=== PATIENT | male | born 1960 | race Two or more races ===

== ENCOUNTER 2016-11-05 17:47 | Inpatient (IN) | payer MEDICAID, MEDICARE ==
[~2016-11-05] VITALS: Ht 195.6 cm; Wt 108.4 kg
[2016-11-05 18:21] VITALS: BP 144/93
[2016-11-05] MEDS ORDERED: MORP15TA PO (18:21)
[2016-11-05] MEDS ORDERED: TRAZ-144 PO (18:21)
[2016-11-05] MEDS ORDERED: HYDR-3326 PO (18:21)
[2016-11-05] MEDS ORDERED: PALI9TAB4 PO (18:21)
[2016-11-05] MEDS ORDERED: LIDO30AD10 TP (18:21)
[2016-11-05] MEDS ORDERED: PANT40TA4 PO (18:21)
[2016-11-05] MEDS ORDERED: ONDA4TAB11 PO (18:21)
[2016-11-05] MEDS ORDERED: LURA80TA PO (18:21)
[2016-11-05] MEDS ORDERED: PREG150C PO (18:21)
[2016-11-05] MEDS ORDERED: MAG HYDROX/AL HYDROX/SIMETH 30 ML UDC PO PRN (18:30)
[2016-11-05] MEDS ORDERED: ZOLPIDEM TARTRATE 5 MG TABLET PO PRN (18:30)
[2016-11-05] MEDS ORDERED: LORAZEPAM 0.5 MG TABLET PO PRN (18:30)
[2016-11-05] MEDS ORDERED: MAGNESIUM HYDROXIDE 30 ML UDC PO PRN (18:30)
[2016-11-05] MEDS ORDERED: HYDROCODONE/APAP 5/325MG 1 EACH TABLET PO PRN (19:30)
[2016-11-05] MEDS ORDERED: ONDANSETRON 4 MG TAB.RAPDIS PO PRN (19:30)
[2016-11-05 20:00] VITALS: BP 125/74
[2016-11-05] MEDS: MORPHINE SULFATE IR 15 MG TABLET PO SCH (21:01)
[2016-11-05] MEDS ORDERED: TRAZODONE 50 MG TABLET PO SCH (22:00)
[2016-11-05] MEDS ORDERED: HYDROCODONE/APAP 5/325MG 1 EACH TABLET ONE (22:29)
[2016-11-05] MEDS ORDERED: MAG HYDROX/AL HYDROX/SIMETH 30 ML UDC ONE (22:29)
[2016-11-06] MEDS: MORPHINE SULFATE IR 15 MG TABLET PO SCH (05:00)
[2016-11-06 07:48] LABS: CALCIUM, SERUM 8.6 mg/dL (8.5-10.1); CREATININE 0.9 mg/dL (0.6-1.3)
[2016-11-06 08:06] LABS: ALBUMIN 3.3 g/dL (3.4-5.0); BILIRUBIN,TOTAL 0.5 mg/dL (0.2-1.0)
[2016-11-06] MEDS: PANTOPRAZOLE 40 MG TABLET.DR PO SCH (08:44)
[2016-11-06 08:58] VITALS: BP 103/63
[2016-11-06] MEDS: LIDOCAINE 5% (PATCH) 1 EA PATCH TP SCH (11:11)
[2016-11-06] MEDS: OLANZAPINE 5 MG/TAB.RAPDIS PO SCH ×2 (11:20→17:23)
[2016-11-06 17:23] VITALS: BP 107/60
[2016-11-06 19:56] VITALS: BP 111/70
[2016-11-06] MEDS: DIVALPROEX SODIUM 250 MG TABLET.DR PO SCH (20:22)
[2016-11-06] MEDS: ACETAMINOPHEN 325 MG TABLET PO PRN (20:24)
[2016-11-06] MEDS: TRAZODONE 50 MG TABLET PO PRN (21:37)
[2016-11-07 08:00] VITALS: BP 112/64
[2016-11-07] MEDS: OLANZAPINE 5 MG/TAB.RAPDIS PO SCH ×2 (08:28→18:17)
[2016-11-07] MEDS: PANTOPRAZOLE 40 MG TABLET.DR PO SCH (08:28)
[2016-11-07] MEDS: DULOXETINE HCL 30 MG CAPSULE.DR PO SCH (08:28)
[2016-11-07] MEDS: DIVALPROEX SODIUM 250 MG TABLET.DR PO SCH ×2 (08:28→21:39)
[2016-11-07] MEDS: LIDOCAINE 5% (PATCH) 1 EA PATCH TP SCH (08:53)
[2016-11-07] MEDS: ACETAMINOPHEN 325 MG TABLET PO PRN (09:11)
[2016-11-07] MEDS: hydrOXYzine PAMOATE 25 MG CAPSULE PO PRN (13:48)
[2016-11-07] MEDS ORDERED: OLANZAPINE 10 MG VIAL IM STA (15:36)
[2016-11-07 15:58] VITALS: BP 150/94
[2016-11-07 19:48] VITALS: BP 118/72
[2016-11-07] MEDS ORDERED: Z GUARD REMEDY 2 OZ OINT TP PRN (20:00)
[2016-11-07] MEDS: TRAZODONE 50 MG TABLET PO PRN (22:11)
[2016-11-08] MEDS: hydrOXYzine PAMOATE 25 MG CAPSULE PO PRN (00:32)
[2016-11-08] MEDS: OLANZAPINE 5 MG/TAB.RAPDIS PO SCH ×2 (08:13→16:46)
[2016-11-08] MEDS: DULOXETINE HCL 30 MG CAPSULE.DR PO SCH (08:13)
[2016-11-08] MEDS: PANTOPRAZOLE 40 MG TABLET.DR PO SCH (08:13)
[2016-11-08] MEDS: DIVALPROEX SODIUM 250 MG TABLET.DR PO SCH ×2 (08:13→21:26)
[2016-11-08] MEDS: LIDOCAINE 5% (PATCH) 1 EA PATCH TP SCH (08:14)
[2016-11-08 08:37] VITALS: BP 122/66
[2016-11-08] MEDS: ACETAMINOPHEN 325 MG TABLET PO PRN (11:40)
[2016-11-08 16:43] VITALS: BP 105/62
[2016-11-08 20:38] VITALS: BP 124/74
[2016-11-08] MEDS: TRAZODONE 50 MG TABLET PO PRN (23:55)
[2016-11-09] MEDS: hydrOXYzine PAMOATE 25 MG CAPSULE PO PRN (00:10)
[2016-11-09] MEDS: PANTOPRAZOLE 40 MG TABLET.DR PO SCH (07:50)
[2016-11-09] MEDS: DIVALPROEX SODIUM 250 MG TABLET.DR PO SCH ×2 (08:04→21:29)
[2016-11-09] MEDS: DULOXETINE HCL 30 MG CAPSULE.DR PO SCH (08:04)
[2016-11-09] MEDS: OLANZAPINE 5 MG/TAB.RAPDIS PO SCH ×2 (08:04→16:52)
[2016-11-09] MEDS: LIDOCAINE 5% (PATCH) 1 EA PATCH TP SCH (08:16)
[2016-11-09 08:20] VITALS: BP 142/74
[2016-11-09 16:22] VITALS: BP 140/66
[2016-11-09] MEDS: HYDROCORTISONE 2.5% CREAM 28.4 GM TUBE TP SCH (16:52)
[2016-11-09 19:55] VITALS: BP 112/73
[2016-11-09] MEDS: TRAZODONE 50 MG TABLET PO PRN (21:29)
[2016-11-10 08:00] VITALS: BP 105/60
[2016-11-10 08:05] LABS: BASOPHILS % (AUTO) 0.4 % (0.0-2.0); DIFF TOTAL % 100 %; EOSINOPHILS # (AUTO) 0.2 /CMM (0.0-0.7); EOSINOPHILS % (AUTO) 3.9 % (0.0-6.0); HEMATOCRIT 47 % (39-51); HEMOGLOBIN 15.7 g/dL (13.5-17.5); LYMPHOCYTES # (AUTO) 2.5 /CMM (0.8-4.8); LYMPHOCYTES % (AUTO) 44.8 % (20.0-44.0); MEAN CORPUSCULAR HEMOGLOBIN 30 PG (26.0-33.0); MEAN CORPUSCULAR HGB CONC 34 g/dl (31.0-36.0); MEAN CORPUSCULAR VOLUME 89 fL (80-96); MONOCYTES # (AUTO) 0.4 /CMM (0.1-1.30); MONOCYTES % (AUTO) 7.2 % (2.0-12.0); NEUTROPHILS # (AUTO) 2.4 /CMM (1.8-8.9); NEUTROPHILS % (AUTO) 43.7 % (43.0-81.0); PLATELET COUNT (AUTO) 199 /CMM (150-450); RED BLOOD CELL COUNT(AUTO) 5.24 MIL/uL (4.5-6.0); WHITE BLOOD COUNT (AUTO) 5.5 K/uL (4.3-11.0)
[2016-11-10 08:18] LABS: CALCIUM, SERUM 8.8 mg/dL (8.5-10.1); CREATININE 0.9 mg/dL (0.6-1.3)
[2016-11-10] MEDS: OLANZAPINE 5 MG/TAB.RAPDIS PO SCH ×2 (08:51→16:27)
[2016-11-10] MEDS: DIVALPROEX SODIUM 250 MG TABLET.DR PO SCH ×2 (08:51→20:28)
[2016-11-10] MEDS: LIDOCAINE 5% (PATCH) 1 EA PATCH TP SCH (08:52)
[2016-11-10] MEDS: PANTOPRAZOLE 40 MG TABLET.DR PO SCH (08:52)
[2016-11-10] MEDS: DULOXETINE HCL 30 MG CAPSULE.DR PO SCH (08:52)
[2016-11-10] MEDS: HYDROCORTISONE 2.5% CREAM 28.4 GM TUBE TP SCH ×2 (08:57→16:27)
[2016-11-10] MEDS: ACETAMINOPHEN 325 MG TABLET PO PRN (15:16)
[2016-11-10 16:00] VITALS: BP_SYST 112; BP_SYST 136; BP_DIAS 61; BP_DIAS 76
[2016-11-10 20:00] VITALS: BP 140/77
[2016-11-10] MEDS: TRAZODONE 50 MG TABLET PO PRN (21:50)
[2016-11-11] MEDS: PANTOPRAZOLE 40 MG TABLET.DR PO SCH (07:30)
[2016-11-11 08:00] VITALS: BP 137/85
[2016-11-11] MEDS: DULOXETINE HCL 30 MG CAPSULE.DR PO SCH (09:43)
[2016-11-11] MEDS: DIVALPROEX SODIUM 250 MG TABLET.DR PO SCH ×3 (09:43→17:32)
[2016-11-11] MEDS: OLANZAPINE 5 MG/TAB.RAPDIS PO SCH ×2 (09:43→17:34)
[2016-11-11] MEDS: HYDROCORTISONE 2.5% CREAM 28.4 GM TUBE TP SCH ×2 (09:44→17:33)
[2016-11-11] MEDS: LIDOCAINE 5% (PATCH) 1 EA PATCH TP SCH ×3 (09:44→15:57)
[2016-11-11 16:00] VITALS: BP 130/80
[2016-11-11 18:12] VITALS: BP 130/80
[2016-11-11 20:00] VITALS: BP 127/70
[2016-11-11] MEDS: ACETAMINOPHEN 325 MG TABLET PO PRN (23:05)
[2016-11-11] MEDS: TRAZODONE 50 MG TABLET PO PRN (23:05)
[2016-11-12 08:00] VITALS: BP 140/70
[2016-11-12] MEDS: DULOXETINE HCL 30 MG CAPSULE.DR PO SCH (08:38)
[2016-11-12] MEDS: PANTOPRAZOLE 40 MG TABLET.DR PO SCH (08:38)
[2016-11-12] MEDS: DIVALPROEX SODIUM 250 MG TABLET.DR PO SCH ×3 (08:38→17:10)
[2016-11-12] MEDS: OLANZAPINE 5 MG/TAB.RAPDIS PO SCH ×2 (08:38→17:10)
[2016-11-12] MEDS: HYDROCORTISONE 2.5% CREAM 28.4 GM TUBE TP SCH ×2 (09:00→17:00)
[2016-11-12 16:01] VITALS: BP 128/70
[2016-11-12] MEDS: hydrOXYzine PAMOATE 25 MG CAPSULE PO PRN (18:40)
[2016-11-12 19:46] VITALS: BP 119/80
[2016-11-12] MEDS: TRAZODONE 50 MG TABLET PO PRN (21:15)
[2016-11-13 08:00] VITALS: BP 119/63
[2016-11-13] MEDS: OLANZAPINE 5 MG/TAB.RAPDIS PO SCH ×2 (08:40→16:04)
[2016-11-13] MEDS: PANTOPRAZOLE 40 MG TABLET.DR PO SCH (08:40)
[2016-11-13] MEDS: DIVALPROEX SODIUM 250 MG TABLET.DR PO SCH ×3 (08:40→16:04)
[2016-11-13] MEDS: DULOXETINE HCL 30 MG CAPSULE.DR PO SCH (08:40)
[2016-11-13] MEDS: HYDROCORTISONE 2.5% CREAM 28.4 GM TUBE TP SCH ×2 (09:37→16:13)
[2016-11-13] MEDS: LIDOCAINE 5% (PATCH) 1 EA PATCH TP SCH (09:37)
[2016-11-13 15:53] VITALS: BP 133/86
[2016-11-13 19:48] VITALS: BP 128/71
[2016-11-13] MEDS: TRAZODONE 50 MG TABLET PO PRN (21:21)
[2016-11-14 08:00] VITALS: BP 122/67
[2016-11-14] MEDS: OLANZAPINE 5 MG/TAB.RAPDIS PO SCH ×2 (08:12→16:44)
[2016-11-14] MEDS: DULOXETINE HCL 30 MG CAPSULE.DR PO SCH (08:12)
[2016-11-14] MEDS: DIVALPROEX SODIUM 250 MG TABLET.DR PO SCH ×3 (08:12→16:44)
[2016-11-14] MEDS: HYDROCORTISONE 2.5% CREAM 28.4 GM TUBE TP SCH ×2 (08:13→16:45)
[2016-11-14] MEDS: LIDOCAINE 5% (PATCH) 1 EA PATCH TP SCH (08:13)
[2016-11-14] MEDS: PANTOPRAZOLE 40 MG TABLET.DR PO SCH (08:13)
[2016-11-14 16:17] VITALS: BP 128/82
[2016-11-14 20:07] VITALS: BP 126/82
== END 2016-11-14 20:00 | DRG 885 ==
LOC: GPS 17:47
PROVIDERS: ADMIT Psychiatry & Neurology Psychiatry; ATTEND Internal Medicine
DX: F31.5 Bipolar disorder, current episode depressed, severe, with psychotic features (principal); F11.20 Opioid dependence, uncomplicated; G89.4 Chronic pain syndrome; Z73.6 Limitation of activities due to disability; F60.89 Other specific personality disorders; Z91.5 Personal history of self-harm
CPT/HCPCS: 36415; 80048-TC; 80053-TC; 80164-TC; 85025-TC; 87081-TC; J3490; Q0177